=== PATIENT | female | born 1965 | race Two or more races ===

== ENCOUNTER 2020-12-25 21:29 | Inpatient (IN) | payer MEDICAID ==
[~2020-12-25] VITALS: Ht 160 cm; Wt 73.8 kg
--- NOTE | 2020-12-25 20:55 | NUR ---
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 TRANSFERRED TO BED. FALL AND SAFETY PRECAUTIONS IN PLACE. ORIENTED PATIENT TO ROOM, BED, UNIT, AND ADMISSION PROCESS. PATIENT IS ALERT AND VERBALLY RESPONSIVE. PATIENT IS BELARUSIAN SPEAKING AND SPEAKS LITTLE CROATIAN. PATIENT CAN MAKE NEEDS KNOWN. PATIENT REPORTS OF 2/10 DULL CHEST PAIN, WITHIN PATIENT'S TOLERABLE LEVEL OF PAIN. PATIENT ON TELE AND IS SINUS RHYTHM 68. BODY CHECK DONE AND NOTED WITH SKIN CLEAR AND INTACT. INVENTORY DONE ALONG WITH MITA BRIGGS. WILL CONTINUE TO MONITOR PATIENT AND ATTEND AND ANTICIPATE NEEDS.
[2020-12-25 21:21] VITALS: BP 95/51
[2020-12-25] MEDS ORDERED: HYDR-3972 PO (22:13)
[2020-12-25] MEDS ORDERED: ONDA-104 IVP (22:13)
[2020-12-25] MEDS ORDERED: MAG-55 PO (22:13)
[2020-12-25] MEDS ORDERED: ZOLP5TAB8 PO (22:13)
[2020-12-25] MEDS ORDERED: MAGN400O6 PO (22:13)
[2020-12-25] MEDS ORDERED: ACET-2154 PO (22:13)
[2020-12-25] MEDS ORDERED: ACET325C7 PO (22:13)
[2020-12-26 00:03] VITALS: BP 93/57
[2020-12-26] MEDS ORDERED: ONDANSETRON 4 MG/2 ML VIAL IV PRN (01:15)
[2020-12-26] MEDS ORDERED: ACETAMINOPHEN 325 MG TABLET PO PRN (01:15)
[2020-12-26] MEDS ORDERED: MAGNESIUM HYDROXIDE 30 ML LIQUID UDC PO PRN (01:45)
[2020-12-26] MEDS ORDERED: ZOLPIDEM 5 MG TABLET PO PRN (01:45)
[2020-12-26] MEDS ORDERED: Medication Not On Formulary EA (Mag Hydrox/Al Hydrox/Simeth (Maalox Advanced Max-Str Sus PO SCH (01:45)
--- NOTE | 2020-12-26 02:00 | NUR ---
DR ZULETA MADE AWARE OF PATIENT'S ADMISSION AND RECEIVED ORDERS.
[2020-12-26 04:03] VITALS: BP 92/62
[2020-12-26] MEDS ORDERED: MAG HYDROX/AL HYDROX/SIMETH 30 ML LIQUID UDC PO PRN (05:45)
[2020-12-26] MEDS: PANTOPRAZOLE SODIUM 40 MG TABLET.DR PO SCH (06:26)
[2020-12-26 06:47] LABS: BASOPHILS % (AUTO) 0.5 % (0.0-2.0); EOSINOPHILS # (AUTO) 0.3 K/uL (0.0-0.7); EOSINOPHILS % (AUTO) 4.5 % (0.0-7.0); HEMATOCRIT 41.8 % (31.2-41.9); HEMOGLOBIN 13.8 g/dL (10.9-14.3); LYMPHOCYTES # (AUTO) 2.2 K/uL (20.0-40.0); LYMPHOCYTES % (AUTO) 37.5 % (20.5-51.5); MEAN CORPUSCULAR HEMOGLOBIN 28.1 uug (24.7-32.8); MEAN CORPUSCULAR HGB CONC 33 g/dL (32.3-35.6); MEAN CORPUSCULAR VOLUME 84.9 fL (75.5-95.3); MONOCYTES # (AUTO) 0.4 K/uL (2.0-10.0); MONOCYTES % (AUTO) 7.2 % (0.0-11.0); NEUTROPHILS # (AUTO) 2.9 K/uL (1.8-8.9); NEUTROPHILS % (AUTO) 50.3 % (38.5-71.5); PLATELET COUNT (AUTO) 231 K/uL (179-408); RED BLOOD CELL COUNT(AUTO) 4.93 MIL/uL (3.63-4.92); WHITE BLOOD COUNT (AUTO) 5.9 K/uL (3.8-11.8)
[2020-12-26 07:06] LABS: BILIRUBIN,TOTAL 0.5 mg/dL (0.2-1.0); CREATININE 0.8 mg/dL (0.6-1.3); MAGNESIUM 3.6 mg/dL (1.8-2.4); PHOSPHOROUS 4.5 mg/dL (2.5-4.9); POTASSIUM 3.7 mmol/L (3.5-5.1); TOTAL PROTEIN, SERUM 7.3 g/dL (6.4-8.2)
[2020-12-26] MEDS: HYDROCODONE/APAP 5-325MG TABLET PO PRN ×2 (10:09→20:01)
--- NOTE | 2020-12-26 10:30 | NUR ---
MEDICATED WITH NORCO FOR HEADACHE WITH GOOD RELIEF, DENIES DIZZINESS OR NAUSEA AND VOMITING
[2020-12-26 12:35] VITALS: BP 105/69
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
[2020-12-26 15:49] VITALS: BP 104/61
[2020-12-26 20:00] VITALS: BP 107/69
[2020-12-27] VITALS: BP 88/53
[2020-12-27 04:00] VITALS: BP 101/57
[2020-12-27] MEDS: PANTOPRAZOLE SODIUM 40 MG TABLET.DR PO SCH (06:30)
[2020-12-27] MEDS: HYDROCODONE/APAP 5-325MG TABLET PO PRN (06:30)
--- NOTE | 2020-12-27 06:58 | NUR ---
Daina rested well in between care; no acute distress; neuro stable; plan of care continued; safety maintained. pt c/o headache last night and this am and norco given PO
--- NOTE | 2020-12-27 08:00 | NUR ---
AWAKE ALERT AND VERBALLY RESPONSIVE, ABLE TO FOLLOW INSTRUCTION AND COMMUNICATE WELL IN [place], DENIES DIZZINESS, N/V. SR ON MONITOR
--- NOTE | 2020-12-27 10:30 | NUR ---
SEEN BY DR SUTHERLAND WITH DC ORDER, BI ANALYST MADE AWARE
[2020-12-27 11:53] VITALS: BP 96/54
--- NOTE | 2020-12-27 14:21 | NUR ---
DISCHARGE HOME STABLE WITH MEDICATION LIST AND FOLLOW-UP INSTRUCTION WITH PRIMARY DOCTOR
== END 2020-12-27 14:21 | disposition home or self-care (01) | DRG 55 ==
LOC: TELE3 21:29
PROVIDERS: ADMIT Internal Medicine; ATTEND Internal Medicine
DX: S06.6X9A Traumatic subarachnoid hemorrhage with loss of consciousness of unspecified duration, initial encounter (principal); S13.9XXA Sprain of joints and ligaments of unspecified parts of neck, initial encounter; V43.62XA Car passenger injured in collision with other type car in traffic accident, initial encounter; Y92.410 Unspecified street and highway as the place of occurrence of the external cause; E66.9 Obesity, unspecified; Z68.28 Body mass index [BMI] 28.0-28.9, adult; R40.2143 Coma scale, eyes open, spontaneous, at hospital admission; R40.2253 Coma scale, best verbal response, oriented, at hospital admission; R40.2363 Coma scale, best motor response, obeys commands, at hospital admission; R29.700 NIHSS score 0
CPT/HCPCS: 36415; 83735; 84100; 85025; A4663; G0378